=== PATIENT | female | born 1940 | race Caucasian/White ===

== ENCOUNTER 2018-05-23 15:48 | Inpatient (IN) ==
--- NOTE | 2018-05-23 16:19 | ERNOTE ---
Dyspnea - General Presenting Symptoms: shortness of breath Time Seen by Provider: 05/23/18 15:50 Source: patient - Immun/Allergies/Home Medications Immunizations: IMMUNIZATION HX Immunizations Up to Date Yes History of Influenza Vaccine No Hx Pneumococcal Vaccination No Allergies/Adverse Reactions: Allergies poison sheyla extract Allergy (Mild, Verified 05/23/18 16:10) rash, itching Home Medications: HOME MEDICATIONS azelaic acid 15 % topical gel 1 applic TP BID 10/29/17 [Last Taken Unknown] insulin glargine (U- 100) 100 unit/mL subcutaneous solution 17 unit SUB-Q DAILY ml 10/29/17 [Last Taken Unknown] levothyroxine 150 mcg capsule 150 mcg PO DAILY #90 cap 03/04/18 [Last Taken Unknown] lovastatin 10 mg tablet 10 mg PO DAILY #90 tab 03/04/18 [Last Taken Unknown] enalapril maleate 10 mg tablet 10 mg PO DAILY #90 tab 05/01/18 [Last Taken U nknown] furosemide 40 mg tablet 40 mg PO DAILY #90 tab 05/01/18 [Last Taken Unknown] metformin 1,000 mg tablet 1,000 mg PO BID #180 tab 05/01/18 [Last Taken Unknown] metoprolol succinate ER 50 mg tablet,extended release 24 hr 50 mg PO DAILY #90 tab 05/01/18 [Last Taken Unknown] - History of Present Illness Narrative: Patient has a history of COPD, usually wears oxygen at home, not sure how many liters. About a month ago her cat chewed up her tubing and she had not been able to use it until a couple of days ago, got it fixed two days ago but still didn't feel like there was any flow so she turned up the dial, not sure to what level. She has been short of breath with exertion while off oxygen, didn't feel it got better when she started back on it. The shortness of breath has become progressively worse, She has a slight cough and a chronic post nasal drip, denies any fever, no chest pain, no recent illness or any other new symptoms Initiating event: Denies: upper resp illness, out of meds, exposure to smoke Frequency of episodes: Reports: occassional episodes Modifying Factors - (Improves): Reports: rest Modifying Factors (Worsens): Reports: activity Associated Symptoms-Dyspnea: Denies: fever/chills, chest pain/discomfort, lightheadedness Prior Treatment: Denies: recently seen, currently on antibiotics Review of Systems - Review of Systems Constitutional: Absent: recent illness, fever, chills ENT: Absent: nose congestion, sore throat Respiratory: Present: See HPI, shortness of breath, cough Cardiology: Absent: chest pain Gastrointestinal/Abdominal: Absent: nausea, vomiting Genitourinary: Absent: frequency, dysuria Skin: Absent: rash Neurological: Absent: headache Medical History (Last Reviewed 05/23/18 @ 16:15 by Kimberly Gisbon MD) COPD (chronic obstructive pulmonary disease) Onset Date: Unknown Diabetes mellitus type 2 in nonobese Onset Date: ~2009 Hyperlipidemia Onset Date: Unknown Hypertension Onset Date: Unknown Hypothyroidism Onset Date: Unknown Morbid obesity Onset Date: Unknown Hepatitis A infection Onset Date: Unknown Surgical History: Surgical History (Last Reviewed 05/23/18 @ 16:15 by Kimberly Gibson MD) Hx of tonsillectomy History of Achilles tendon repair Onset Date: ~1989 History of cholecystectomy Onset Date: ~1995 Family History: Family History (Last Reviewed 05/23/18 @ 16:09 by Eli Rajan RN) Father Hypertension Mother No known health problems Alzheimers disease Social History: Preferred Language French Smoking Status Former smoker Alcohol Use none (Last Updated 02/24/18 @ 11:49 by Dia Torres MD) No Social History Section defined Physical Exam - Physical Exam General Appearance: Present: wd/wn, alert, mild distress, obese Respiratory: Present: no accessory muscle use, lungs clear, decreased breath sounds, expiration (prolonged) Cardiovascular/Chest: Present: regular rate, rhythm, no murmur Gastrointestinal/Abdominal: Present: normal bowel sounds, nontender, soft Extremity Exam: Present: no edema Neurological Exam: Present: alert, oriented, normal mood/affect Skin Exam: Present: warm/dry, cyanosis Progress - Results and Orders Patient's Lab Results:: I have reviewed the patient's lab results. - Vital Signs Patient's Vital Signs:: I have reviewed the patient's vital signs. Vital Signs: Vital Signs 05/23/18 15:49 05/23/18 16:09 05/23/18 16:11 Temperature 37 C Pulse Rate 114 H 106 H 106 H Respiratory Rate 30 H 27 H O2 Sat by Pulse Oximetry 48 L 94 - EKG EKG #1 EKG: NSR - sinustachycardia, nonspecific ST T wave changes, other - no prior EKG read: Interp. by me - X-Ray X-Ray #1 X-Ray: chest - right lower lung infiltrate, venous congestion Interpretation: Interp. by me - Progress/Reassessment Chief Complaint: Dyspnea Progress Note-Subjective: 05/23/18 16:14 O2 sat 97% on NRB, switched to oxymask 95% on 6liters, patient feeling much better, improved color, good respiratory effort 05/23/18 17:03 first ABG: patient is retaining CO2, acidotic, patient is very comfortable and has good respiratory effort, only slightly increased work of breathing, unclear whether current numbers are improvement or worsening. patient 02 sat >90% on 3 liters, with minimal exertion at xray (standing up and turning) saturations drop to 85% right lower lung infiltrate 05/23/18 17:35 no improvement in ABG's, patient continues to retain CO2 and is acidotic will start BiPAP and admit for pneumonia 05/23/18 17:[address] Murphy, he has no privileges for Bipap at this point, Dr Matos will start call at 19:00 05/23/18 19:[address] Matos, dimitrisay to admit for pneumonia and respiratory failure (according to [facility] Bipap is not part of the ventilator privileges) 05/23/18 19:50 CXR consistent with CHF though BNP normal and no history of CHF, discussed with Dr Matos, will give lasix 40mg IV Departure Clinical Impression: Pneumonia Qualifiers: Pneumonia type: due to unspecified organism Laterality: right Lung location: lower lobe of lung Qualified Code(s): J18.1 - Lobar pneumonia, unspecified organism Respiratory failure Qualifiers: Chronicity: acute on chronic Respiratory failure complication: hypoxia and hypercapnia Qualified Code(s): J96.21 - Acute and chronic respiratory failure with hypoxia; J96.22 - Acute and chronic respiratory failure with hypercapnia Congestive heart failure Qualifiers: Heart failure type: unspecified Heart failure chronicity: unspecified Qualified Code(s): I50.9 - Heart failure, unspecified - Departure Disposition: Still a patient Condition: Stable
[2018-05-23 16:30] LABS: Hematocrit 55.6 % (37.0-47.0); Hemoglobin 16.6 gm/dL (12.5-16.0); Mean Cell Volume 98.6 fl (78-100); Mean Corpuscular Hemoglobin 29.4 pg (27-31); Mean Corpuscular Hgb Conc 29.9 g/dl (32-36); Mean Platelet Volume 10.2 fl (8-12.5); Neutrophil # 5.1 K/mm3 (1.3-6.0); Neutrophil % 71.2 % (42-75.0); Platelet Count 260 K/mm3 (150-450); Red Blood Count 5.64 M/mm3 (4.2-5.4); Red Cell Distribution Width 14.5 % (11.5-14.0); White Blood Count 7.2 K/mm3 (4.0-10.5)
[2018-05-23 16:42] LABS: Albumin * 3.3 gm/dl (3.4-5.0); Anion Gap 10.7 mmol/L (6.8-13.8); BUN/Creatinine Ratio 9.8 (9.0-21.6); Bilirubin, Total 0.7 mg/dL (0.0-1.1); Ca. Corrected For Albumin 9.5 mg/dL (8.4-10.2); Calcium * 9.3 mg/dL (7.9-10.9); Carbon Dioxide 37.4 mmol/L (24-32.6); Potassium 5.1 mmol/L (3.4-4.6); Total Protein 7.4 gm/dL (6.2-8.2)
[2018-05-23] MEDS ORDERED: cefTRIAXone SODIUM 1,000 MG/100 ML BAG IV ONE (17:31)
[2018-05-23] MEDS ORDERED: AZITHROMYCIN 250 MG TABLET PO ONE (17:46)
[2018-05-23] MEDS ORDERED: METHYLPREDNISOLONE SOD SUCC/PF 125 MG/2 ML VIAL IV ONE (18:28)
[2018-05-23] MEDS ORDERED: FUROSEMIDE 10 MG/ML VIAL IV ONE (19:56)
[2018-05-23] MEDS ORDERED: FUROSEMIDE 10 MG/ML VIAL ONE (20:11)
--- NOTE | 2018-05-23 21:35 | HP ---
Chief Complaint - Chief Complaint Date of Service: 05/23/18 Time of Service: 21:11 Chief Complaint: weakness History of Present Illness: Patient presented from home after feeling very weak. In the ED, she was noted to have bluish discoloration, and labs revealed she was in hypercarbic hypoxemic respiratory failure. She denied recent fever, cough, chest pain, lower extremity swelling. She improved after BiPAP. She had a similar situation a few years ago, and was diagnosed with pneumonia. Medical History (Last Reviewed 05/23/18 @ 16:15 by Kimberly Gibson MD) COPD (chronic obstructive pulmonary disease) Onset Date: Unknown Diabetes mellitus type 2 in nonobese Onset Date: ~2009 Hyperlipidemia Onset Date: Unknown Hypertension Onset Date: Unknown Hypothyroidism Onset Date: Unknown Morbid obesity Onset Date: Unknown Hepatitis A infection Onset Date: Unknown Surgical History: Surgical History (Last Reviewed 05/23/18 @ 16:15 by Kimberly Gibson MD) Hx of tonsillectomy History of Achilles tendon repair Onset Date: ~1989 History of cholecystectomy Onset Date: ~1995 Family History: Family History (Last Reviewed 05/23/18 @ 16:09 by Eli Rajan RN) Father Hypertension Mother No known health problems Alzheimers disease Social History: Preferred Language Fijian Smoking Status Former smoker Alcohol Use none (Last Updated 02/24/18 @ 11:49 by Dia Torres MD) No Social History Section defined Review Of Systems (GEN) - Review of Systems Generalized/Overall Review: Absent: Fever Respiratory: Present: Shortness of Breath. Absent: Cough, Wheezing Cardiac: Absent: Chest Pain, Edema Abdominal: Absent: Nausea, Vomiting Genitourinary: Absent: Burning Immunizations: IMMUNIZATION HX Immunizations Up to Date Yes History of Influenza Vaccine No Hx Pneumococcal Vaccination No Allergies/Adverse Reactions: Allergies Allergy/AdvReac Type Severity Reaction Status Date / Time poison sheyla extract Allergy Mild rash, Verified 05/23/18 16:10 itching Home Medications: HOME MEDICATIONS azelaic acid 15 % topical gel 1 applic TP BID PRN 10/29/17 [Last Taken Unknown] insulin glargine (U- 100) 100 unit/mL subcutaneous solution 14 unit SUB-Q DAILY ml 10/29/17 [Last Taken 05/21/18] levothyroxine 150 mcg capsule 150 mcg PO DAILY #90 cap 11/07/18 [Last Taken 05/22/18 11:00] enalapril maleate 10 mg tablet 10 mg PO DAILY #90 tab 05/01/18 [Last Taken 05/22/18 16:00] metformin 1,000 mg tablet 1,000 mg PO BID #180 tab 05/01/18 [Last Taken 05/22/18 16:00] metoprolol succinate ER 50 mg tablet,extended release 24 hr 50 mg PO DAILY #90 tab 05/01/18 [Last Taken 05/22/18 16:00] Exam - Exam Vital Signs: Vital Signs - Last Taken Temp 37 C 05/23/18 15:49 Pulse 91 05/23/18 20:20 Resp 16 05/23/18 20:20 BP 149/98 H 05/23/18 20:20 Pulse Ox 92 L 05/23/18 20:51 Constitutional: Present: Alert, Oriented x3, Cooperative, No distress, Morbidly obese Respiratory: Present: decreased breath sounds - wearing Bipap. Absent lung sounds in bilateral bases, but no rhonchi or wheeze currently Cardiovascular/Chest: Present: tachycardia - 103 Abdomen: Present: obese Extremity: Absent: lower extremity edema Skin Exam: Present: other - venous stasis discoloration of bilateral lower extremities Eye contact: Present: cooperative Diagnostic Studies: Abnormal Lab Results 05/23/18 05/23/18 05/23/18 Range/Units 16:10 16:10 16:38 RBC 5.64 H (4.2-5.4) M/mm3 Hgb 16.6 H (12.5-16.0) gm/dL Hct 55.6 H (37.0-47.0) % MCHC 29.9 L (32-36) g/dl RDW 14.5 H (11.5-14.0) % Immature Gran % (Auto) 2.80 H (0.001-0.429) % Immature Gran # (Auto) 0.20 H (0.000-0.0310) K/mm3 Lymphocytes % 18.6 L (20-51) % Lymphocytes # 1.33 L (1.5-3.5) k/mm3 pCO2 78.1 H* (32.0-45.0) mmHg pO2 60.4 L (83.0-108.0) mmHg HCO3 35.2 H (21.0-28.0) mmol/L Total CO2 37.6 H (19.0-24.0) mmol/L Base Excess 5.0 H (-2.0-3.0) mmol/L ABG pH 7.27 L (7.35-7.45) ABG O2 Sat (Measured) 86.6 L (94.0-98.0) % Sodium 146 H (132-142) mmol/L Plasma Sodium 148 H (130-142) mmol/L Potassium 5.1 H (3.4-4.6) mmol/L Carbon Dioxide 37.4 H (24-32.6) mmol/L Est GFR (Non-Af Amer) 45 L (60-130) mL/min Random Glucose 204 H (70-110) mg/dL ALT 18 L (19-67) U/L Albumin 3.3 L (3.4-5.0) gm/dl 05/23/18 05/23/18 Range/Units 17:22 18:47 RBC (4.2-5.4) M/mm3 Hgb (12.5-16.0) gm/dL Hct (37.0-47.0) % MCHC (32-36) g/dl RDW (11.5-14.0) % Immature Gran % (Auto) (0.001-0.429) % Immature Gran # (Auto) (0.000-0.0310) K/mm3 Lymphocytes % (20-51) % Lymphocytes # (1.5-3.5) k/mm3 pCO2 74.0 H* 64.6 H (32.0-45.0) mmHg pO2 64.4 L 57.7 L (83.0-108.0) mmHg HCO3 32.9 H 32.3 H (21.0-28.0) mmol/L Total CO2 35.2 H 34.3 H (19.0-24.0) mmol/L Base Excess 3.1 H 4.0 H (-2.0-3.0) mmol/L ABG pH 7.27 L 7.32 L (7.35-7.45) ABG O2 Sat (Measured) 88.7 L 86.9 L (94.0-98.0) % Sodium (132-142) mmol/L Plasma Sodium (130-142) mmol/L Potassium (3.4-4.6) mmol/L Carbon Dioxide (24-32.6) mmol/L Est GFR (Non-Af Amer) (60-130) mL/min Random Glucose (70-110) mg/dL ALT (19-67) U/L Albumin (3.4-5.0) gm/dl Laboratory Results WBC 7.2 K/mm3 (4.0-10.5) 05/23/18 16:10 RBC 5.64 M/mm3 (4.2-5.4) H 05/23/18 16:10 Hgb 16.6 gm/dL (12.5-16.0) H 05/23/18 16:10 Hct 55.6 % (37.0-47.0) H 05/23/18 16:10 MCV 98.6 fl (78-100) 05/23/18 16:10 MCH 29.4 pg (27-31) 05/23/18 16:10 MCHC 29.9 g/dl (32-36) L 05/23/18 16:10 RDW 14.5 % (11.5-14.0) H 05/23/18 16:10 Plt Count 260 K/mm3 (150-450) 05/23/18 16:10 MPV 10.2 fl (8-12.5) 05/23/18 16:10 Immature Gran % (Auto) 2.80 % (0.001-0.429) H 05/23/18 16:10 Immature Gran # (Auto) 0.20 K/mm3 (0.000-0.0310) H 05/23/18 16:10 Neutrophils % 71.2 % (42-75.0) 05/23/18 16:10 Lymphocytes % 18.6 % (20-51) L 05/23/18 16:10 Monocytes % 5.0 % (0.0-9) 05/23/18 16:10 Eosinophils % 1.4 % (0.0-3.0) 05/23/18 16:10 Basophils % 1.0 % (0.0-1.0) 05/23/18 16:10 Nucleated RBC % 0.0 k/mm3 (0-1) 05/23/18 16:10 Neutrophils # 5.1 K/mm3 (1.3-6.0) 05/23/18 16:10 Lymphocytes # 1.33 k/mm3 (1.5-3.5) L 05/23/18 16:10 Monocytes # 0.4 k/mm3 (0.0-1.0) 05/23/18 16:10 Eosinophils # 0.1 k/mm3 (0.0-0.7) 05/23/18 16:10 Absolute Basophils 0.1 k/mm3 (0.0-0.1) 05/23/18 16:10 pCO2 64.6 mmHg (32.0-45.0) H 05/23/18 18:47 pO2 57.7 mmHg (83.0-108.0) L 05/23/18 18:47 HCO3 32.3 mmol/L (21.0-28.0) H 05/23/18 18:47 Total CO2 34.3 mmol/L (19.0-24.0) H 05/23/18 18:47 Base Excess 4.0 mmol/L (-2.0-3.0) H 05/23/18 18:47 ABG pH 7.32 (7.35-7.45) L 05/23/18 18:47 ABG O2 Sat (Measured) 86.9 % (94.0-98.0) L 05/23/18 18:47 Sodium 146 mmol/L (132-142) H 05/23/18 16:10 Plasma Sodium 148 mmol/L (130-142) H 05/23/18 16:10 Potassium 5.1 mmol/L (3.4-4.6) H 05/23/18 16:10 Chloride 103 mmol/L (97-106) 05/23/18 16:10 Carbon Dioxide 37.4 mmol/L (24-32.6) H 05/23/18 16:10 Anion Gap 10.7 mmol/L (6.8-13.8) 05/23/18 16:10 BUN 12 mg/dL (3-23) 05/23/18 16:10 Creatinine 1.23 mg/dL (0.4-1.4) 05/23/18 16:10 Est GFR (Non-Af Amer) 45 mL/min (60-130) L 05/23/18 16:10 BUN/Creatinine Ratio 9.8 (9.0-21.6) 05/23/18 16:10 Random Glucose 204 mg/dL (70-110) H 05/23/18 16:10 Calcium 9.3 mg/dL (7.9-10.9) 05/23/18 16:10 Calcium Adj for Albumin 9.5 mg/dL (8.4-10.2) 05/23/18 16:10 Total Bilirubin 0.7 mg/dL (0.0-1.1) 05/23/18 16:10 AST 16 U/L (0-48) 05/23/18 16:10 ALT 18 U/L (19-67) L 05/23/18 16:10 Alkaline Phosphatase 78 U/L (50-170) 05/23/18 16:10 B-Natriuretic Peptide 526 pg/mL (5-550) 05/23/18 16:10 Total Protein 7.4 gm/dL (6.2-8.2) 05/23/18 16:10 Albumin 3.3 gm/dl (3.4-5.0) L 05/23/18 16:10 Influenza Type A Ag Negative (NEGATIVE) 05/23/18 16:45 Influenza Type B Ag Negative (NEGATIVE) 05/23/18 16:45 Assessment/Plan - Assessment/Plan (1) Respiratory failure Assessment: Differential includes cardiac source, COPD exacerbation, CHF exacerbation, pneumonia. She denies cough, fever, chest pain, making pneumonia less likely even though possible pneumonia on chest x-ray. She does have vascular jason estion on her chest x-ray, but no crackles on exam or lower extremity swelling. BNP not elevated. She is improving with BiPAP. Has received 40 mg IV Lasix, and 120 mg Solu-Medrol, along with a dose of Rocephin and azithromycin. She is improving with BiPAP, however will discontinue this is soon as possible and transition to nasal cannula. We will keep her n.p.o. while on BiPAP. Troponin pending. Influenza negative. Initial pH of 7.27, improved to 7.32 after approximately 1 hour on the BiPAP. PCO2 improved from 78-65, and PO2 essentially unchanged from 60-57. Her heart rate is improving and oxygenation in the 90s. Of note, patient is DNR and DNI. She did ask questions if she would be a candidate for organ donation, which she is an appropriate candidate. Problem: Acute Qualifiers: Chronicity: acute on chronic Respiratory failure complication: hypoxia and hypercapnia Qualified Code(s): J96.21 - Acute and chronic respiratory failure with hypoxia; J96.22 - Acute and chronic respiratory failure with hypercapnia (2) Hypertension Assessment: Will continue home enalapril and metoprolol. Her blood pressure is elevated currently, however has not taken her antihypertensives today. Problem: Chronic (3) Diabetes mellitus Assessment: We will continue home dose of 17 units of glargine. Accu-Cheks at meals and bedtime. Will administer sensitive sliding scale if needed. Continue home metformin. Glucose on admission was 204. Problem: Acute Qualifiers: Diabetes mellitus type: type 2 (4) Hypothyroidism Assessment: Continue home 150 mcg levothyroxine. Problem: Acute (5) BMI 50.0-59.9, adult Problem: Acute
[2018-05-24 06:43] LABS: Anion Gap 8.1 mmol/L (6.8-13.8); BUN/Creatinine Ratio 11.7 (9.0-21.6); Calcium * 8.9 mg/dL (7.9-10.9); Carbon Dioxide 39.5 mmol/L (24-32.6); Estimated Creat Clear 32.8; Potassium 4.6 mmol/L (3.4-4.6)
[2018-05-24] MEDS: INSULIN LISPRO 100 UNITS/ML VIAL SC SCH ×3 (07:23→16:49)
[2018-05-24] MEDS: LEVOTHYROXINE SODIUM 150 MCG TABLET PO SCH (07:23)
[2018-05-24] MEDS: METOPROLOL SUCCINATE 50 MG TABLET.SA PO SCH (08:41)
[2018-05-24] MEDS: INSULIN GLARGINE,HUM.REC.ANLOG 100 UNITS/ML VIAL SC SCH (08:42)
[2018-05-24] MEDS: ENALAPRIL MALEATE 5 MG TABLET PO SCH (08:42)
--- NOTE | 2018-05-24 09:43 | PN ---
Subjective - Date and Time Seen Date: 05/24/18 Time: 09:40 Subjective Narrative: Patient reports feeling better this morning, and is no longer as weak. She was off the BiPAP since 10:00 last night. She states she had a sleep study previously, and qualified for CPAP, but does not use one. She admits to letting cats sleep on her head at home. She is tolerating a diet without difficulty. Objective - Review of Systems Generalized/Overall Review: Reports: Weakness. Denies: Fever, Weight loss Respiratory: Reports: Shortness of Breath. Denies: Cough, Wheezing Cardiac: Denies: Chest Pain, Edema Abdominal: Denies: Nausea Genitourinary Symptoms: Reports: Frequency Neurological: Denies: Headache Skin: Reports: Other - rash of face - Vitals Vitals: Last Vital Signs Temp 36.1 C 05/24/18 07:46 Pulse 89 05/24/18 08:42 Resp 20 05/24/18 07:46 BP 171/86 H 05/24/18 08:42 Pulse Ox 95 05/24/18 07:46 - Abnormal Lab Findings Abnormal Lab Findings: Abnormal Lab Results 05/23/18 05/23/18 05/23/18 Range/Units 16:10 16:10 16:38 RBC 5.64 H (4.2-5.4) M/mm3 Hgb 16.6 H (12.5-16.0) gm/dL Hct 55.6 H (37.0-47.0) % MCHC 29.9 L (32-36) g/dl RDW 14.5 H (11.5-14.0) % Immature Gran % (Auto) 2.80 H (0.001-0.429) % Immature Gran # (Auto) 0.20 H (0.000-0.0310) K/mm3 Lymphocytes % 18.6 L (20-51) % Lymphocytes # 1.33 L (1.5-3.5) k/mm3 pCO2 78.1 H* (32.0-45.0) mmHg pO2 60.4 L (83.0-108.0) mmHg HCO3 35.2 H (21.0-28.0) mmol/L Total CO2 37.6 H (19.0-24.0) mmol/L Base Excess 5.0 H (-2.0-3.0) mmol/L ABG pH 7.27 L (7.35-7.45) ABG O2 Sat (Measured) 86.6 L (94.0-98.0) % Sodium 146 H (132-142) mmol/L Plasma Sodium 148 H (130-142) mmol/L Potassium 5.1 H (3.4-4.6) mmol/L Carbon Dioxide 37.4 H (24-32.6) mmol/L Est GFR (Non-Af Amer) 45 L (60-130) mL/min Random Glucose 204 H (70-110) mg/dL ALT 18 L (19-67) U/L Albumin 3.3 L (3.4-5.0) gm/dl 05/23/18 05/23/18 05/24/18 Range/Units 17:22 18:47 06:10 RBC (4.2-5.4) M/mm3 Hgb (12.5-16.0) gm/dL Hct (37.0-47.0) % MCHC (32-36) g/dl RDW (11.5-14.0) % Immature Gran % (Auto) (0.001-0.429) % Immature Gran # (Auto) (0.000-0.0310) K/mm3 Lymphocytes % (20-51) % Lymphocytes # (1.5-3.5) k/mm3 pCO2 74.0 H* 64.6 H (32.0-45.0) mmHg pO2 64.4 L 57.7 L (83.0-108.0) mmHg HCO3 32.9 H 32.3 H (21.0-28.0) mmol/L Total CO2 35.2 H 34.3 H (19.0-24.0) mmol/L Base Excess 3.1 H 4.0 H (-2.0-3.0) mmol/L ABG pH 7.27 L 7.32 L (7.35-7.45) ABG O2 Sat (Measured) 88.7 L 86.9 L (94.0-98.0) % Sodium (132-142) mmol/L Plasma Sodium 144 H (130-142) mmol/L Potassium (3.4-4.6) mmol/L Carbon Dioxide 39.5 H (24-32.6) mmol/L Est GFR (Non-Af Amer) 43 L (60-130) mL/min Random Glucose 195 H (70-110) mg/dL ALT (19-67) U/L Albumin (3.4-5.0) gm/dl 05/24/18 Range/Units 06:30 RBC (4.2-5.4) M/mm3 Hgb (12.5-16.0) gm/dL Hct (37.0-47.0) % MCHC (32-36) g/dl RDW (11.5-14.0) % Immature Gran % (Auto) (0.001-0.429) % Immature Gran # (Auto) (0.000-0.0310) K/mm3 Lymphocytes % (20-51) % Lymphocytes # (1.5-3.5) k/mm3 pCO2 59.2 H (32.0-45.0) mmHg pO2 59.3 L (83.0-108.0) mmHg HCO3 29.1 H (21.0-28.0) mmol/L Total CO2 31.0 H (19.0-24.0) mmol/L Base Excess (-2.0-3.0) mmol/L ABG pH 7.31 L (7.35-7.45) ABG O2 Sat (Measured) 87.8 L (94.0-98.0) % Sodium (132-142) mmol/L Plasma Sodium (130-142) mmol/L Potassium (3.4-4.6) mmol/L Carbon Dioxide (24-32.6) mmol/L Est GFR (Non-Af Amer) (60-130) mL/min Random Glucose (70-110) mg/dL ALT (19-67) U/L Albumin (3.4-5.0) gm/dl - Exam Constitutional: Present: Alert, Cooperative, Morbidly obese Respiratory: Present: other - wearing 3L oxygen via NC. Absent: no respiratory distress, rhonchi Cardiovascular/Chest: Present: tachycardia Abdomen: Present: obese, firm Extremity: Absent: lower extremity edema Skin Exam: Present: other - numerous small broken blood vessels of forehead and cheeks Neurologic: Present: alert, normal mood/affect Eye contact: Present: cooperative Assessment/Plan - Problems/Diagnosis (1) Respiratory failure Problem: Acute Qualifiers: Chronicity: acute on chronic Respiratory failure complication: hypoxia and hypercapnia Qualified Code(s): J96.21 - Acute and chronic respiratory failure with hypoxia; J96.22 - Acute and chronic respiratory failure with hypercapnia Narrative: Improving. However on initially walking in her room this morning, she was sleeping, and her oxygenation level was at 79% and her heart rate was 110. Both of these improved after she woke, with oxygenation greater than 90% and heart rate also in the 90s. Sleep study from July 2009 shows that she had mild obstructive sleep apnea and she was to return for CPAP titration. Do not have documentation of her CPAP titration results. She has gained approximately 18 pounds since that study. We will place CPAP on auto settings tonight. White blood cells not elevated, and she is afebrile. Denies upper respiratory symptoms, other than weakness. Chest x-ray showed pulmonary congestion and possible pneumonia. With her BMI of 51.9, pickwickian syndrome is likely contributing to her presentation. She reports not having her home oxygen for the last month because her cats chewed her oxygen tubing. We will need to ensure that she has all her respiratory supplies after discharge. She was given 125 mg of Solu-Medrol, 40 mg IV Lasix, Rocephin, and azithromycin last night in the ER. We will continue azithromycin, and switch to Cefdinir. Will administer 60 mg prednisone for the next 5 days. Continue home 40 mg daily Lasix p.o. (2) Hypertension Problem: Chronic Narrative: Antihypertensives were administered this morning. Blood pressure is fluctuating, but no changes in her regimen. (3) Diabetes mellitus Problem: Chronic Qualifiers: Diabetes mellitus type: type 2 Diabetes mellitus halfway insulin use: with halfway use Narrative: Continue home dose of 14 units Lantus, and sensitive scale insulin. She got 3 units Humalog this morning with breakfast. (4) Hypothyroidism Problem: Chronic Narrative: Continue home levothyroxine. TSH appropriate in August 2017. (5) Obstructive sleep apnea hypopnea, mild Problem: Acute Narrative: Patient sleep study from July 2009 was positive for mild MARINA. She was to return for CPAP titration, however did not have those results. Will administer auto settings with CPAP tonight. (6) Hyperkalemia Problem: Acute Narrative: Resolved. (7) BMI 50.0-59.9, adult Problem: Chronic Narrative: Likely has pickwickian syndrome which is contributing to her respiratory difficulties. She states she qualified for CPAP previously, but does not use it. Strongly recommend the use of CPAP to alleviate respiratory difficulty after discharge. (8) Rosacea Problem: Chronic
[2018-05-24] MEDS: CEFDINIR 300 MG CAPSULE PO SCH ×2 (11:36→20:30)
[2018-05-24] MEDS: predniSONE 20 MG TABLET PO SCH (11:36)
[2018-05-24] MEDS: AZITHROMYCIN 250 MG TABLET PO SCH (18:44)
[2018-05-24] MEDS ORDERED: AZITHROMYCIN 250 MG TABLET PO SCH (19:38)
[2018-05-24] MEDS: NYSTATIN 15 APPL BTL TP SCH (20:35)
[2018-05-25] MEDS: INSULIN LISPRO 100 UNITS/ML VIAL SC SCH ×3 (06:56→17:30)
[2018-05-25] MEDS: LEVOTHYROXINE SODIUM 150 MCG TABLET PO SCH (07:00)
--- NOTE | 2018-05-25 08:20 | DS ---
(1) COPD exacerbation Problem: Suspected (2) Respiratory failure Problem: Resolved Qualifiers: Chronicity: acute on chronic Respiratory failure complication: hypoxia and hypercapnia Qualified Code(s): J96.21 - Acute and chronic respiratory failure with hypoxia; J96.22 - Acute and chronic respiratory failure with hypercapnia (3) Obstructive sleep apnea hypopnea, mild Problem: Chronic (4) Hypertension Problem: Chronic (5) Diabetes mellitus Problem: Chronic Qualifiers: Diabetes mellitus type: type 2 Diabetes mellitus shelter insulin use: with terminal operator use (6) Hypothyroidism Problem: Chronic (7) Hyperkalemia Problem: Resolved (8) BMI 50.0-59.9, adult Problem: Chronic (9) Rosacea Problem: Chronic Description of Stay: Patient presented to the ER after having weakness. She was bluish in color at the time, and ABG revealed she was in hypercapnic hypoxic respiratory failure. She improved with BiPAP. She had significant difficulty wearing the BiPAP machine however. She wore it for approximately 3 hours. She had no changes in mentation, and was alert and oriented at all times. She declined the use of the BiPAP overnight on 05/25/18. It is felt she likely has COPD, given her significant smoking history and exposure to secondhand smoke. Complete PFTs ordered post discharge. Inhaler was offered, but she stated she would not use them. White blood cell count was not elevated. Influenza negative. Chest x-ray showed CHF and possible pneumonia. She was given 40 mg IV Lasix, a dose of Rocephin and then Cefdinir, and started on azithromycin. She strongly disliked the administration of lasix, as it made her urinate too much. Chart review shows she had a sleep study done in July 2009, and was diagnosed with mild obstructive sleep apnea. There are no sleep titration results in her chart however. The second night of admission, she was placed on CPAP with auto settings, however could not tolerate the mask. She was able to oxygenate on 3 L nasal cannula. She declined Bipap on the final night of her admission. She does not have lung disease that she has been diagnosed with. Body habitus strongly suggest pickwickian syndrome. Will order pulmonary function testing after discharge. She reports smoking 3 packs of cigarettes daily for 30 years, quitting in the late 70s. However she runs a [employer], and was exposed to secondhand smoke for approximately 25 additional years. She was prescribed oxygen that she wears when she feels short of breath. However she has multiple cats, and the cats destroyed her oxygen tubing, and she had not been using it for the last month. She would not use an inhaler after discharge. She states she does not get short of breath at home because she sits in a chair and "does not do anything." Her oxygenation does continue to drop, but recovers immediately when she breaths in through her nose with 3L O2 via NC in place. She felt comfortable going home on the day of discharge. She was dropping to 69% while ambulating on 3 L, but remained greater that 88% on 5L. Will DC with 3L O2 at rest, and 5L with activity. She reports her brother bought her new oxygen tubing. Procedures Performed: none Results and Findings: Pending Mircobiology Results 05/23/18 16:26 Blood Blood Culture - Preliminary NO GROWTH 24 HOURS 05/23/18 16:10 Blood Blood Culture - Preliminary NO GROWTH 24 HOURS Lab Pending Results 05/23/18 16:10: WBC 7.2, RBC 5.64 H, Hgb 16.6 H, Hct 55.6 H, MCV 98.6, MCH 29.4, MCHC 29.9 L, RDW 14.5 H, Plt Count 260, MPV 10.2, Immature Gran % (Auto) 2.80 H, Immature Gran # (Auto) 0.20 H, Neutrophils % 71.2, Lymphocytes % 18.6 L, Monocytes % 5.0, Eosinophils % 1.4, Basophils % 1.0, Nucleated RBC % 0.0, Neutrophils # 5.1, Lymphocytes # 1.33 L, Monocytes # 0.4, Eosinophils # 0.1, Absolute Basophils 0.1 05/23/18 16:10: Sodium 146 H, Plasma Sodium 148 H, Potassium 5.1 H, Chloride 103, Carbon Dioxide 37.4 H, Anion Gap 10.7, BUN 12, Creatinine 1.23, Est GFR (Non-Af Amer) 45 L, BUN/Creatinine Ratio 9.8, Random Glucose 204 H, Calcium 9.3, Calcium Adj for Albumin 9.5, Total Bilirubin 0.7, AST 16, ALT 18 L, Alkaline Phosphatase 78, B-Natriuretic Peptide 526, Total Protein 7.4, Albumin 3.3 L 05/23/18 16:38: pCO2 78.1 H*, pO2 60.4 L, HCO3 35.2 H, Total CO2 37.6 H, Base Excess 5.0 H, ABG pH 7.27 L, ABG O2 Sat (Measured) 86.6 L 05/23/18 16:45: Influenza Type A Ag Negative, Influenza Type B Ag Negative 05/23/18 17:22: pCO2 74.0 H*, pO2 64.4 L, HCO3 32.9 H, Total CO2 35.2 H, Base Excess 3.1 H, ABG pH 7.27 L, ABG O2 Sat (Measured) 88.7 L 05/23/18 18:47: pCO2 64.6 H, pO2 57.7 L, HCO3 32.3 H, Total CO2 34.3 H, Base Excess 4.0 H, ABG pH 7.32 L, ABG O2 Sat (Measured) 86.9 L 05/23/18 21:30: Troponin I Less than 0.017 05/24/18 00:44: Troponin I Less than 0.017 05/24/18 06:10: Sodium 142, Plasma Sodium 144 H, Potassium 4.6, Chloride 99, Carbon Dioxide 39.5 H, Anion Gap 8.1, BUN 15, Creatinine 1.28, Est GFR (Non-Af Amer) 43 L, BUN/Creatinine Ratio 11.7, Random Glucose 195 H, Calcium 8.9 05/24/18 06:30: pCO2 59.2 H, pO2 59.3 L, HCO3 29.1 H, Total CO2 31.0 H, Base Excess 1.3, ABG pH 7.31 L, ABG O2 Sat (Measured) 87.8 L Discharge Location: Home Disposition: Home self-care Condition: Stable Discharge Activity: Activity as tolerated Discharge Diet: General/regular food Referrals: Dia Torres MD [Primary Care Provider] - Problem Oriented Discharge Instructions to Patient/Family: Community-Acquired Pneumonia, Adult, [id number] Additional Patient Instructions (free text): Follow up with Dr. Torres on June 04 at 0945. Call [facility] at [phone] when you get home and they will check your concentrator. Prescriptions (Any new or edited meds): Azithromycin [Zithromax] 250 mg PO DAILY@1830 #2 tab Cefdinir [Omnicef] 300 mg PO BID #2 cap Nystatin [Mycostatin Powder] 1 appl TOPICAL BID #1 btl predniSONE [Prednisone] 60 mg PO DAILY #2 tab Complete Home Medications List: Complete Home Medication List: azelaic acid 15 % topical gel 1 applic TP BID PRN 10/29/17 insulin glargine (U- 100) 100 unit/mL subcutaneous solution 14 unit SUB-Q DAILY ml 10/29/17 levothyroxine 150 mcg capsule 150 mcg PO DAILY #90 cap 03/04/18 enalapril maleate 10 mg tablet 10 mg PO DAILY #90 tab 05/01/18 metformin 1,000 mg tablet 1,000 mg PO BID #180 tab 05/01/18 metoprolol succinate ER 50 mg tablet,extended release 24 hr 50 mg PO DAILY #90 tab 05/01/18 Azithromycin [Zithromax] 250 mg PO DAILY@1830 #2 tab 05/26/18 Cefdinir [Omnicef] 300 mg PO BID #2 cap 05/26/18 Nystatin [Mycostatin Powder] 1 appl TOPICAL BID #1 btl 05/26/18 predniSONE [Prednisone] 60 mg PO DAILY #2 tab 05/26/18 Amb Orders for Discharge: PFT Complete Time Frame: 3 Weeks, Location: Respiratory Therapy
[2018-05-25] MEDS: METOPROLOL SUCCINATE 50 MG TABLET.SA PO SCH (08:45)
[2018-05-25] MEDS: NYSTATIN 15 APPL BTL TP SCH ×2 (08:45→21:07)
[2018-05-25] MEDS: predniSONE 20 MG TABLET PO SCH (08:46)
[2018-05-25] MEDS: CEFDINIR 300 MG CAPSULE PO SCH ×2 (08:46→21:06)
[2018-05-25] MEDS: ENALAPRIL MALEATE 5 MG TABLET PO SCH (08:47)
[2018-05-25] MEDS: INSULIN GLARGINE,HUM.REC.ANLOG 100 UNITS/ML VIAL SC SCH (08:49)
--- NOTE | 2018-05-25 12:41 | PN ---
Subjective - Date and Time Seen Date: 05/25/18 Time: 12:41 Subjective Narrative: Patient was unable to tolerate the CPAP machine overnight. She is able to eat. She continues to desaturate when sleeping or when talking. She is wondering if she can get a walker for after discharge. She still does not feel like she is at her baseline, with continued weakness. Objective - Review of Systems Generalized/Overall Review: Denies: Chills - weakness Respiratory: Denies: Cough Cardiac: Denies: Chest Pain, Edema Abdominal: Denies: Vomiting - Vitals Vitals: Last Vital Signs Temp 36.3 C 05/25/18 10:00 Pulse 72 05/25/18 10:00 Resp 14 05/25/18 10:00 BP 134/68 05/25/18 10:00 Pulse Ox 99 05/25/18 10:00 - Exam Constitutional: Present: Alert, Oriented x3, No distress, Morbidly obese Respiratory: Present: decreased breath sounds, other - wearing NC, with 3L O2. Absent: crackles, wheezing Cardiovascular/Chest: Present: regular rate, rhythm Abdomen: Present: obese Extremity: Absent: lower extremity edema Skin Exam: Present: other - venous stasis changes of bilateral lower extremities Eye contact: Present: cooperative Assessment/Plan - Problems/Diagnosis (1) Respiratory failure Problem: Resolved Qualifiers: Chronicity: acute on chronic Respiratory failure complication: hypoxia and hypercapnia Qualified Code(s): J96.21 - Acute and chronic respiratory failure with hypoxia; J96.22 - Acute and chronic respiratory failure with hypercapnia Narrative: She continues to have desaturations to the 70s with sleeping or talking. She oxygenates well on 3 L via nasal cannula when awake. She continues to be weak. We will continue to treat for COPD exacerbation with cefdinir and azithromycin. Will give an extra 40 mg IV Lasix. She did not tolerate the CPAP machine overnight, but would recommend trying again tonight. She does not oxygenate well on just nasal cannula. Pickwickian syndrome likely largely responsible for her respiratory failure, as she does not have CP, cough, fever, or audible abnormalities on physical exam. (2) Hypertension Problem: Chronic (3) Diabetes mellitus Problem: Chronic Qualifiers: Diabetes mellitus type: type 2 Diabetes mellitus exterminator helper insulin use: with senior living use (4) Hypothyroidism Problem: Chronic (5) Obstructive sleep apnea hypopnea, mild Problem: Chronic Narrative: Recommend overnight CPAP. Sleep study from 2010 showed mild MARINA, but she does not use a machine. (6) Hyperkalemia Problem: Resolved (7) BMI 50.0-59.9, adult Problem: Chronic (8) Rosacea Problem: Chronic
[2018-05-25] MEDS ORDERED: FUROSEMIDE 10 MG/ML VIAL IV ONE (13:01)
[2018-05-25] MEDS: AZITHROMYCIN 250 MG TABLET PO SCH (21:06)
[2018-05-26] MEDS: INSULIN LISPRO 100 UNITS/ML VIAL SC SCH ×2 (07:00→11:51)
[2018-05-26] MEDS: LEVOTHYROXINE SODIUM 150 MCG TABLET PO SCH (07:01)
[2018-05-26] MEDS: CEFDINIR 300 MG CAPSULE PO SCH (08:11)
[2018-05-26] MEDS: predniSONE 20 MG TABLET PO SCH (08:11)
[2018-05-26] MEDS: METOPROLOL SUCCINATE 50 MG TABLET.SA PO SCH (08:11)
[2018-05-26] MEDS: NYSTATIN 15 APPL BTL TP SCH (08:12)
[2018-05-26] MEDS: ENALAPRIL MALEATE 5 MG TABLET PO SCH (08:12)
[2018-05-26] MEDS: INSULIN GLARGINE,HUM.REC.ANLOG 100 UNITS/ML VIAL SC SCH (08:12)
[2018-05-26 16:23] VITALS: BP 159/69
== END 2018-05-26 16:37 | disposition home or self-care (01) | DRG 189 ==
LOC: MS 15:48 → ER 15:48 → OBSVTOIN 19:31 → INTOOBSV 19:31 → MS 20:25
PROVIDERS: ADMIT Family Medicine; ATTEND Family Medicine
DX: J44.1 Chronic obstructive pulmonary disease with (acute) exacerbation; J96.22 Acute and chronic respiratory failure with hypercapnia; Z66 Do not resuscitate; E66.2 Morbid (severe) obesity with alveolar hypoventilation; Z99.81 Dependence on supplemental oxygen; I11.0 Hypertensive heart disease with heart failure; I27.20 Pulmonary hypertension, unspecified; I50.9 Heart failure, unspecified; E87.5 Hyperkalemia; Z57.31 Occupational exposure to environmental tobacco smoke; J96.21 Acute and chronic respiratory failure with hypoxia; E11.9 Type 2 diabetes mellitus without complications; Z87.891 Personal history of nicotine dependence; Z68.43 Body mass index [BMI] 50.0-59.9, adult; Z82.49 Family history of ischemic heart disease and other diseases of the circulatory system; Z79.4 Long term (current) use of insulin; E78.5 Hyperlipidemia, unspecified; E03.9 Hypothyroidism, unspecified
CPT/HCPCS: 36415; 36600; 71020; 71046; 80048; 80053; 82803; 83519; 83880; 84484; 85025; 87040; 87400; 87449; 90686; 93005; 94660; 94760; 96365; 96375; 97116; 97161; 97530; 99284